=== PATIENT | male | born 1985 | race Caucasian/White ===

== ENCOUNTER → 2016-10-13 | Outpatient (CLI) | payer MEDICAID ==
[2016-10-13 12:38] LABS: MEAN CORPUSCULAR HEMOGLOBIN 32.2 pg (27.0-33.0); MEAN CORPUSCULAR HGB CONC 34.1 g/dl (32.0-36.5); MEAN CORPUSCULAR VOLUME 94.5 fl (80.0-96.0); RED CELL DISTRIBUTION WIDTH 12.9 % (11.5-14.5); WHITE BLOOD COUNT 9.4 K/mm3 (4.0-10.0)
[2016-10-13 13:04] LABS: ALBUMIN/GLOBULIN RATIO 1.33 (1.00-1.93); ALKALINE PHOSPHATASE 81 U/L (45-117); ALT/SGPT 33 U/L (12-78); ANION GAP 11 MEQ/L (8-16); AST/SGOT 19 U/L (15-37); BILIRUBIN,TOTAL 0.3 MG/DL (0.2-1.0); BLOOD UREA NITROGEN 16 MG/DL (7-18); CALCIUM LEVEL 8.5 MG/DL (8.5-10.1); CARBON DIOXIDE LEVEL 25 MEQ/L (21-32); CHLORIDE LEVEL 97 MEQ/L (98-107); CREATININE FOR GFR 1.23 MG/DL (0.70-1.30); GLOMERULAR FILTRATION RATE > 60.0 (>60); GLUCOSE, FASTING 88 MG/DL (70-105); POTASSIUM SERUM 3.6 MEQ/L (3.5-5.1); SODIUM LEVEL 133 MEQ/L (136-145)
[2016-10-13 13:13] LABS: HEPATITIS B SURFACE ANTIBODY POSITIVE (POSITIVE)
[2016-10-17 00:06] LABS: HEPATITIS C QUANTITATION HCV Not Detected IU/mL (.)
[2016-10-17 08:06] LABS: ALT 29 IU/L (0-55); GGT 21 IU/L (0-65); HAPTOGLOBIN 141 mg/dL (34-200); NECROINFLAMM GRADE A0-No activity (.); TOTAL BILIRUBIN 0.2 mg/dL (0.0-1.2)
== END ==
LOC: M LAB 12:01
PROVIDERS: ATTEND Internal Medicine Cardiovascular Disease
DX: Z13.89 Encounter for screening for other disorder (principal)

== ENCOUNTER 2017-07-27 03:39 | Inpatient (IN) | payer MEDICAID, OTHER, SELFPAY ==
[~2017-07-27] VITALS: Ht 180.3 cm; Wt 81.8 kg
[2017-07-27 05:20] LABS: MEAN CORPUSCULAR HEMOGLOBIN 31.3 pg (27.0-33.0); MEAN CORPUSCULAR HGB CONC 34.9 g/dl (32.0-36.5); MEAN CORPUSCULAR VOLUME 89.9 fl (80.0-96.0); RED CELL DISTRIBUTION WIDTH 12.9 % (11.5-14.5); WHITE BLOOD COUNT 19.2 10^3/uL (4.0-10.0)
[2017-07-27 05:44] LABS: METHADONE URINE NEGATIVE (NEGATIVE)
[2017-07-27 06:34] LABS: ALKALINE PHOSPHATASE 120 U/L (45-117); ALT/SGPT 39 U/L (12-78); ANION GAP 13 MEQ/L (8-16); AST/SGOT 59 U/L (15-37); BILIRUBIN,DIRECT 0.3 MG/DL (0.0-0.2); BILIRUBIN,TOTAL 1.1 MG/DL (0.2-1.0); BLOOD UREA NITROGEN 18 MG/DL (7-18); CALCIUM LEVEL 8.9 MG/DL (8.5-10.1); CARBON DIOXIDE LEVEL 22 MEQ/L (21-32); CHLORIDE LEVEL 101 MEQ/L (98-107); CREATININE FOR GFR 1.32 MG/DL (0.70-1.30); GLOMERULAR FILTRATION RATE > 60.0 (>60); GLUCOSE, FASTING 80 MG/DL (70-105); POTASSIUM SERUM 3.7 MEQ/L (3.5-5.1); SODIUM LEVEL 136 MEQ/L (136-145); TOTAL PROTEIN 7.8 GM/DL (6.4-8.2)
[2017-07-27] MEDS ORDERED: HALOPERIDOL 5 MG TAB PO STA (06:41)
[2017-07-27 07:05] LABS: ALBUMIN 4.4 GM/DL (3.2-5.2); ALBUMIN/GLOBULIN RATIO 1.29 (1.00-1.93)
[2017-07-27] MEDS: NICOTINE 21MG/24HR 1 EA TRANSDERMAL TD SCH (09:00)
--- NOTE | 2017-07-27 09:41 | ECGEPIP ---
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
[2017-07-27] MEDS ORDERED: MOM 30ML SUSPENSION UDC PO PRN (14:45)
[2017-07-27] MEDS ORDERED: MAALOX 30 ML SUSP *UDC PO PRN (14:45)
[2017-07-27] MEDS ORDERED: QUEtiapine FUMARATE 100 MG TAB PO PRN (14:45)
[2017-07-27 18:00] VITALS: BP 140/82
[2017-07-27] MEDS: ACETAMINOPHEN TAB 650MG DOSE (2X325MG) PO PRN (20:56)
[2017-07-27] MEDS: OLANZapine ORAL DISINTEGRATING TAB 5MG PO PRN (20:56)
[2017-07-28 06:47] VITALS: BP 117/59
--- NOTE | 2017-07-28 09:29 | HPEPDOC ---
[facility] Medical History & Physical Date of Admission Jul 27, 2017 History and Physical PCP: None ATTENDING: Dr. Raymon Butler HPI: 32yoM admitted to [facility] for bipolar disorder unspecified, being medically examined today. No acute medical complaints today. Denies any fevers, chills, weakness, fatigue, ZHANG, CP, SOB, cough, palpitations, abdominal pain, N/V/D or changes in bowel or bladder habits. PMHx: Bipolar disorder Anxiety Depression History of SI/suicide attempt. Overdose. Substance use. PSHX: Denies SOCHX: Resides in: 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 IV Drug Use: Methamphetamine, heroin. Tattoos done unprofessionally: Denies FAMHX: Mother: Unknown Father: Unknown Siblings: Alive, well Children: Alive, well Unexpected deaths due to medical reasons: None. ROS: As noted in HPI, otherwise 11pt ROS of systems reviewed and remarkable only for erythematous rash bilateral toes. Patient states he wears steel toed boots all day and does a lot of walking on uneven surfaces. His feet become irritated. PE: GEN: 32 yo M, appears stated age. Well-nourished, well developed. No acute distress. Alert and oriented x 3. Avoids eye contact, reluctant to answer questions. HEENT: Normocephalic, atraumatic. Pupils are equal, round, and reactive to light. Extraocular movements are intact. No nystagmus appreciated. Sclera are nonicteric. Conjunctiva without injection. Nose midline. Nasal turbinates without bogginess. EACs both patent BL. TMs both visualized and mckeon with good cone of light, no bulging or erythema. No facial asymmetry. Moist mucous membranes. Dentition fair. Pharynx pink and moist, no cobblestoning. Neck supple , trachea midline. No lymphadenopathy or thyromegaly appreciated. CHEST: Regular rate and rhythm, +S1, +S2 LUNGS: Clear to auscultation bilaterally. No wheezes, rales, or rhonchi. Breathing appears symmetric and easy. Patient is speaking in full sentences. No accessory muscle use. ABD: Round, soft, non-tender, non-distended. +Bowel sounds throughout. No rebound or guarding. No costovertebral angle tenderness. EXT: Pulses 2+ bilaterally dorsalis pedis and radial. No lower extremity edema appreciated. SKIN: Sexton, dry, warm. erythematous rash bilateral feet, between toes. Injection sites noted bilateral arms and hands. No erythema, drainage. NEURO: Alert and oriented x 3. Cranial nerves III-XII are intact. No focal deficits appreciated. EK07/27/17 SINUS TACHYCARDIA POSSIBLE LEFT ATRIAL ENLARGEMENT POOR R WAVE PROGRESSION BASELINE ARTIFACT AFFECTS INTERPRETATION RATE CHANGE COMPARED TO 09/28/15 A&P: 32yoM admitted to [facility] for bipolar disorder unspecified 1. Psych. Plan per Psychiatry. EKG on file. 2. Nicotine dependence. Patch available. 3. Borderline EKG. No cardiac signs or symptoms appreciated on exam, follow with PCP. 4. Follow up. No Primary Care Provider. Will attempt to establish PCP on discharge. 5. Substance abuse. Per psychiatry. 6. Leukocytosis. Patient is afebrile. Asymptomatic. Possible stress response. Recheck CBC. 7. Elevated CK. Recheck CK today. Oral intake has improved. 8. Elevated serum creatinine. Recheck CMP today. Oral intake has improved. 9. History of IVDU. Patient agrees to HIV and hepatitis screening. 10. Abnormal LFT. Recheck CMP and requests hepatitis profile. 11. Staff member Jw present throughout exam. Vital Signs Vital Signs Date Time Temp Pulse Resp B/P (MAP) Pulse Ox O2 Delivery O2 Flow Rate FiO2 07/28/17 06:47 98.2 71 20 117/59 (78) 07/27/17 18:00 96 Room Air Home Medications No Active Prescriptions or Reported Meds Allergies Coded Allergies: Aspirin (Verified Allergy, Mild, IRREGULAR HEARTBEAT, 07/27/17) Michelle Michelle Jul 28, 2017 09:29
[2017-07-28] MEDS: NICOTINE 21MG/24HR 1 EA TRANSDERMAL TD SCH (09:31)
[2017-07-28 10:02] LABS: BASO % 0.4 % (0.0-1.0); EOS # 0.1 10^3/uL (0.0-0.50); EOS % 1.6 % (0.0-3.0); IMMATURE GRANULOCYTE % 0.2 % (0-0); LYMPH # 1.9 10^3/uL (1.5-4.5); LYMPH % 34.3 % (24.0-44.0); MEAN CORPUSCULAR HEMOGLOBIN 31.5 pg (27.0-33.0); MEAN CORPUSCULAR HGB CONC 34.6 g/dl (32.0-36.5); MEAN CORPUSCULAR VOLUME 91.1 fl (80.0-96.0); MONO # 0.4 10^3/uL (0.0-0.8); NEUTROPHILS % 55.5 % (36.0-66.0); PLATELET COUNT, AUTOMATED 234 10^3/uL (150-450); RED CELL DISTRIBUTION WIDTH 12.9 % (11.5-14.5); WHITE BLOOD COUNT 5.5 10^3/uL (4.0-10.0)
[2017-07-28 10:33] LABS: ALBUMIN 3.6 GM/DL (3.2-5.2); ALBUMIN/GLOBULIN RATIO 1.03 (1.00-1.93); ALKALINE PHOSPHATASE 109 U/L (45-117); ALT/SGPT 33 U/L (12-78); ANION GAP 4 MEQ/L (8-16); AST/SGOT 28 U/L (15-37); BILIRUBIN,TOTAL 0.7 MG/DL (0.2-1.0); BLOOD UREA NITROGEN 19 MG/DL (7-18); CALCIUM LEVEL 9.1 MG/DL (8.5-10.1); CARBON DIOXIDE LEVEL 29 MEQ/L (21-32); CHLORIDE LEVEL 108 MEQ/L (98-107); CREATININE FOR GFR 1.05 MG/DL (0.70-1.30); GLOMERULAR FILTRATION RATE > 60.0 (>60); GLUCOSE, FASTING 102 MG/DL (70-105); SODIUM LEVEL 141 MEQ/L (136-145); TOTAL PROTEIN 7.1 GM/DL (6.4-8.2)
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
[2017-07-28] MEDS: CitaloPRAM (CeleXA) 10 MG TABLET PO SCH (16:26)
[2017-07-28 18:30] VITALS: BP 111/58
[2017-07-28] MEDS: OLANZapine ORAL DISINTEGRATING TAB 5MG PO PRN (20:21)
[2017-07-28] MEDS: ACETAMINOPHEN TAB 650MG DOSE (2X325MG) PO PRN (20:21)
[2017-07-29 06:23] VITALS: BP 128/62
[2017-07-29 08:10] LABS: MEAN CORPUSCULAR HEMOGLOBIN 31.2 pg (27.0-33.0); MEAN CORPUSCULAR HGB CONC 33.9 g/dl (32.0-36.5); MEAN CORPUSCULAR VOLUME 91.9 fl (80.0-96.0); RED CELL DISTRIBUTION WIDTH 12.7 % (11.5-14.5); WHITE BLOOD COUNT 6.1 10^3/uL (4.0-10.0)
[2017-07-29] MEDS: NICOTINE 21MG/24HR 1 EA TRANSDERMAL TD SCH (08:25)
[2017-07-29] MEDS: CitaloPRAM (CeleXA) 10 MG TABLET PO SCH (08:25)
[2017-07-29 08:37] LABS: ALBUMIN 3.5 GM/DL (3.2-5.2); ALBUMIN/GLOBULIN RATIO 1.06 (1.00-1.93); ALKALINE PHOSPHATASE 105 U/L (45-117); ALT/SGPT 27 U/L (12-78); ANION GAP 7 MEQ/L (8-16); AST/SGOT 19 U/L (15-37); BILIRUBIN,TOTAL 0.4 MG/DL (0.2-1.0); BLOOD UREA NITROGEN 17 MG/DL (7-18); CARBON DIOXIDE LEVEL 26 MEQ/L (21-32); CHLORIDE LEVEL 108 MEQ/L (98-107); CREATININE FOR GFR 0.94 MG/DL (0.70-1.30); GLOMERULAR FILTRATION RATE > 60.0 (>60); GLUCOSE, FASTING 102 MG/DL (70-105); POTASSIUM SERUM 4.2 MEQ/L (3.5-5.1); SODIUM LEVEL 141 MEQ/L (136-145); TOTAL PROTEIN 6.8 GM/DL (6.4-8.2)
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
[2017-07-29] MEDS: OLANZapine ORAL DISINTEGRATING TAB 5MG PO PRN (13:00)
[2017-07-29 18:24] VITALS: BP 121/62
[2017-07-30 06:00] VITALS: BP 118/67
[2017-07-30] MEDS: NICOTINE 21MG/24HR 1 EA TRANSDERMAL TD SCH (08:30)
[2017-07-30] MEDS: CitaloPRAM (CeleXA) 10 MG TABLET PO SCH (08:31)
--- NOTE | 2017-07-30 11:04 | MHIPNPDOC ---
[facility] Progress Note Progress Note DATE OF SERVICE: 07/30/17 HISTORY: Patient insists in going to rehabilitation, he is motivated to do it. Yesterday this promotion writer spoke with the senior media planner about the possibility of him going to rehabilitation and she said that apparently there are some only 2 places that will take him at this time. He was informed of this situation and was told it might take a long time for this places to accept him or he might be accepted right away. Patient has a long-standing history of substance abuse and he has been as an inpatient at rehabilitation [facility]. Patient is aware of his problem and has not given up the relationship with his ex- girlfriend. He will try hard to get off the drugs and to go back to her if he can prove her that he is able to stay clean. Today, 07/30/17 he said that if he's not accepted in Rehab right away, he will go [facility] and live with his girlfriend or his parents house. he says he spoke with his GF who came to visit him last night and he thinks she would be supportive for the most part of this process. discussed with him addressing his past history of trauma and dealing with that situation, if he really wants to succeed with the substance abuse problem, he needs to heal the trauma and depression with therapy and psychopharmacology. Addressed this issue because he has never complied with treatment after being in rehab. VITAL SIGNS: See below. NEW TEST RESULTS: See below CURRENT MEDICATIONS: See below. MENTAL STATUS EXAMINATION: Patient is a 32 -year old male, who is alert, dressed in hospital clothes, cooperative with poor eye contact, good hygiene and grooming. Speech: Normal in tone, rate and volume Language skills are Fair. Thought processes including: Coherent Thought content: Focused on his rehab. Abstract reasoning, and computation: Fair Description of associations: good Description of abnormal or psychotic thoughts: Denied a/V hallucinations, denied SI/HI. He states he feels less paranoid than he did yesterday. Judgment: Poor Insight: Limited Orientation: oriented x 3 Recent and remote memory: Good Attention span and concentration: Fair Language: Fair Fund of knowledge: Not assessed at this time Mood: Sad, dressed Affect: congruent to mood, constricted DIAGNOSES: 1. Unspecified psychotic disorder, r/o Substance induced psychosis 2. Bipolar disorder by history 3. R/O PTSD ASSESSMENT: Patient is responding well to medications, he hasn't had any visual or auditory hallucinations although he continues to be depressed. This depression can be a consequence of the problem abuse and the withdrawals, but I believe the patient has been depressed for mostly all his life. I think he has PTSD and this has been untreated for many years because he doesn't like to talk about these past traumatic events. MANAGEMENT PLAN: We'll continue with the same treatment plan TIME SPENT: 20 minutes. Vital Signs Vital Signs Date Time Temp Pulse Resp B/P (MAP) Pulse Ox O2 Delivery O2 Flow Rate FiO2 07/30/17 06:00 98.1 68 18 118/67 (84) 07/29/17 11:00 Room Air 07/27/17 18:00 96 Current Medications Current Medications Acetaminophen (Tylenol Tab) 650 mg Q6HP PRN PO HEADACHE or DISCOMFORT Last administered on 07/28/17 20:21; Start 07/27/17 at 14:45; Stop 08/26/17 at 14 :44 Al Hydrox/Mg Hydrox/Simethicone (Mylanta) 30 ml Q4HP PRN PO HEARTBURN/ INDIGESTION; Start 07/27/17 at 14:45; Stop 08/26/17 at 14:44 Aripiprazole (AbiLIFY) 2.5 mg BID PO Last administered on 07/29/17 08:25; Start 07/28/17 at 21:00; Stop 07/29/17 at 10:53; Status DC Aripiprazole (AbiLIFY) 2.5 mg QAM PO Last administered on 07/30/17 08:31; Start 07/30/17 at 09:00; Stop 08/27/17 at 20:59 Aripiprazole (AbiLIFY) 5 mg QHS PO ; Start 07/29/17 at 21:00; Stop 08/28/17 at 20:59 Citalopram Hydrobromide (CeleXA) 10 mg DAILY PO Last administered on 08:31; Start 07/28/17 at 09:00; Stop 08/27/17 at 08:59 Haloperidol (Haldol) 5 mg STAT STAT PO Last administered on 07/27/17 06:51; Start 07/27/17 at 06:41; Stop 07/27/17 at 06:42; Status DC Home Med (Med Rec Complete!) ASDIRECTED XX ; Start 07/27/17 at 05:30; Stop at 05:33; Status DC Magnesium Hydroxide (Milk Of Magnesia) 30 ml DAILYPRN PRN PO CONSTIPATION; Start 07/27/17 at 14:45; Stop 08/26/17 at 14:44 Nicotine (Nicoderm Cq 21mg) 1 patch DAILY TD Last administered on 07/30/17 08 :30; Start 07/27/17 at 09:00; Stop 08/26/17 at 08:59 Olanzapine (ZyPREXA ZYDIS) 5 mg Q4HP PRN PO AGITATION Last administered on 07/29/17 13:00; Start 07/27/17 at 14:45; Stop 08/26/17 at 14:44 Quetiapine Fumarate (SEROquel) 100 mg QHSP PRN PO INSOMNIA Last administered on 07/27/17 20:56; Start 07/27/17 at 14:45; Stop 07/28/17 at 15:43; Status DC Allergies Coded Allergies: Aspirin (Verified Allergy, Mild, IRREGULAR HEARTBEAT, 07/27/17) MARYCRUZ ANDERSON MD Jul 30, 2017 11:04
[2017-07-30 18:00] VITALS: BP 129/80
[2017-07-31 06:58] VITALS: BP 113/66
[2017-07-31] MEDS: NICOTINE 21MG/24HR 1 EA TRANSDERMAL TD SCH (08:35)
[2017-07-31] MEDS: CitaloPRAM (CeleXA) 10 MG TABLET PO SCH (08:35)
[2017-07-31] MEDS: OLANZapine ORAL DISINTEGRATING TAB 5MG PO PRN ×2 (13:30→21:33)
[2017-07-31 18:00] VITALS: BP 114/58
--- NOTE | 2017-07-31 19:43 | MHIPNPDOC ---
[facility] Progress Note Progress Note DATE OF SERVICE: 07/31/17 HISTORY: Patient insists in going to rehabilitation, he is motivated to do it. Yesterday this documentation writer spoke with the process planner about the possibility of him going to rehabilitation and she said that apparently there are some only 2 places that will take him at this time. He was informed of this situation and was told it might take a long time for this places to accept him or he might be accepted right away. Patient has a long-standing history of substance abuse and he has been as an inpatient at [facility]. Patient is aware of his problem and has not given up the relationship with his ex- girlfriend. He will try hard to get off the drugs and to go back to her if he can prove her that he is able to stay clean. Today, 07/31/17 patient denied suicidal ideation and said he would like to leave the hospital to go into Rehab directly because he doesn't feel safe if he goes to his parents or his ex girlfriend's house. VITAL SIGNS: See below. NEW TEST RESULTS: See below CURRENT MEDICATIONS: See below. MENTAL STATUS EXAMINATION: Patient is a 32 -year old male, who is alert, dressed in personal clothes, cooperative with poor eye contact, good hygiene and grooming. Speech: Normal in tone and rate, low volume Language skills are Fair. Thought processes including: Goal directed Thought content: Focused on his rehab. Abstract reasoning, and computation: Fair Description of associations: good Description of abnormal or psychotic thoughts: Denied a/V hallucinations, denied SI/HI but he describes anxious thoughts about his discharge because he doesn't feel safe going back to his family or GF's home, he feels he would use drugs again or would try to hurt himself. Judgment: Poor Insight: Poor Orientation: oriented x 3 Recent and remote memory: Good Attention span and concentration: Fair Language: Fair Fund of knowledge: Not assessed at this time Mood: Sad, dressed Affect: congruent to mood, constricted DIAGNOSES: 1. Unspecified psychotic disorder, r/o Substance induced psychosis 2. Bipolar disorder by history 3. R/O PTSD ASSESSMENT: Patient is cooperative with a pleasant attitude. He continues to be depressed, even when he seems to be improving a little bit. Patient needs to address his history of trauma and heal that if he wants to stop using drugs. he needs to go to rehab but he will need to go to therapy to address his problems. MANAGEMENT PLAN: We'll continue with the same treatment plan TIME SPENT: 20 minutes. Vital Signs Vital Signs Date Time Temp Pulse Resp B/P (MAP) Pulse Ox O2 Delivery O2 Flow Rate FiO2 07/31/17 18:00 98.6 64 16 114/58 (76) 07/29/17 11:00 Room Air 07/27/17 18:00 96 Current Medications Current Medications Acetaminophen (Tylenol Tab) 650 mg Q6HP PRN PO HEADACHE or DISCOMFORT Last administered on 07/28/17 20:21; Start 07/27/17 at 14:45; Stop 08/26/17 at 14 :44 Al Hydrox/Mg Hydrox/Simethicone (Mylanta) 30 ml Q4HP PRN PO HEARTBURN/ INDIGESTION; Start 07/27/17 at 14:45; Stop 08/26/17 at 14:44 Aripiprazole (AbiLIFY) 2.5 mg BID PO Last administered on 07/29/17 08:25; Start 07/28/17 at 21:00; Stop 07/29/17 at 10:53; Status DC Aripiprazole (AbiLIFY) 2.5 mg QAM PO Last administered on 07/31/17 08:35; Start 07/30/17 at 09:00; Stop 08/27/17 at 20:59 Aripiprazole (AbiLIFY) 5 mg QHS PO Last administered on 07/30/17 20:45; Start 07/29/17 at 21:00; Stop 08/28/17 at 20:59 Citalopram Hydrobromide (CeleXA) 10 mg DAILY PO Last administered on 08:35; Start 07/28/17 at 09:00; Stop 08/27/17 at 08:59 Haloperidol (Haldol) 5 mg STAT STAT PO Last administered on 07/27/17 06:51; Start 07/27/17 at 06:41; Stop 07/27/17 at 06:42; Status DC Home Med (Med Rec Complete!) ASDIRECTED XX ; Start 07/27/17 at 05:30; Stop at 05:33; Status DC Magnesium Hydroxide (Milk Of Magnesia) 30 ml DAILYPRN PRN PO CONSTIPATION; Start 07/27/17 at 14:45; Stop 08/26/17 at 14:44 Nicotine (Nicoderm Cq 21mg) 1 patch DAILY TD Last administered on 07/31/17 08 :35; Start 07/27/17 at 09:00; Stop 08/26/17 at 08:59 Olanzapine (ZyPREXA ZYDIS) 5 mg Q4HP PRN PO AGITATION Last administered on 07/31/17 13:30; Start 07/27/17 at 14:45; Stop 08/26/17 at 14:44 Quetiapine Fumarate (SEROquel) 100 mg QHSP PRN PO INSOMNIA Last administered on 07/27/17 20:56; Start 07/27/17 at 14:45; Stop 07/28/17 at 15:43; Status DC Allergies Coded Allergies: Aspirin (Verified Allergy, Mild, IRREGULAR HEARTBEAT, 07/27/17) MARYCRUZ ANDERSON MD Jul 31, 2017 19:43
[2017-07-31] MEDS: ACETAMINOPHEN TAB 650MG DOSE (2X325MG) PO PRN (21:33)
[2017-08-01 07:00] VITALS: BP 106/57
[2017-08-01] MEDS: NICOTINE 21MG/24HR 1 EA TRANSDERMAL TD SCH (08:38)
[2017-08-01] MEDS: CitaloPRAM (CeleXA) 10 MG TABLET PO SCH (08:38)
[2017-08-01 18:11] VITALS: BP 128/68
[2017-08-01] MEDS: OLANZapine ORAL DISINTEGRATING TAB 5MG PO PRN (20:25)
[2017-08-01] MEDS: ACETAMINOPHEN TAB 650MG DOSE (2X325MG) PO PRN (20:25)
[2017-08-02 06:31] VITALS: BP 108/56
[2017-08-02] MEDS: CitaloPRAM (CeleXA) 10 MG TABLET PO SCH (08:42)
[2017-08-02] MEDS: NICOTINE 21MG/24HR 1 EA TRANSDERMAL TD SCH (08:42)
[2017-08-02 18:00] VITALS: BP 138/78
[2017-08-03 06:33] VITALS: BP 131/63
[2017-08-03] MEDS: CitaloPRAM (CeleXA) 10 MG TABLET PO SCH (08:29)
[2017-08-03] MEDS: NICOTINE 21MG/24HR 1 EA TRANSDERMAL TD SCH (08:29)
[2017-08-03] MEDS: ACETAMINOPHEN TAB 650MG DOSE (2X325MG) PO PRN (10:08)
--- NOTE | 2017-08-03 13:52 | MHIPNPDOC ---
[facility] Progress Note Progress Note DATE OF SERVICE: 08/03/17 HISTORY: Patient insists in going to rehabilitation, he is motivated to do it. Yesterday this typewriter tester spoke with the assortment planner about the possibility of him going to rehabilitation and she said that apparently there are some only 2 places that will take him at this time. He was informed of this situation and was told it might take a long time for this places to accept him or he might be accepted right away. Patient has a long-standing history of substance abuse and he has been as an inpatient at [facility]. Patient is aware of his problem and has not given up the relationship with his ex- girlfriend. He will try hard to get off the drugs and to go back to her if he can prove her that he is able to stay clean. Today, 08/03/17 patient said he would prefer to go directly to the Rehabilitation Program because he was not that sure he was going to use drugs again or not but he denied feeling suicidal or homicidal. Later on, patient says it was his GF who wanted him to go directly to the Rehab Program, not him because he knows he can take care of himself. He said he didn't need to have a meeting with GF, parents or friends to hav a safe discharge because he could take care of himself and seemed to be in a hurry to leave [facility]. This typewriter tester addressed that issue, asked him if he had drug cravings and he said no. TW explained that before a patient leaves, we must have a discharge meeting with patient's support members to be sure they are safe to go home. patient seemed to be upset about this. VITAL SIGNS: See below. NEW TEST RESULTS: See below CURRENT MEDICATIONS: See below. MENTAL STATUS EXAMINATION: Patient is a 32 -year old male, who is alert, cooperative, dressed in personal clothes, anxious, with poor eye contact, fair hygiene and grooming. Speech: Higher volume than usual, but within the normal range. Normal rate and tone. Language skills are good Thought processes including: coherent Thought content: Focused on being discharged without having a discharge meeting. Abstract reasoning, and computation: Fair Description of associations: good Description of abnormal or psychotic thoughts: Denies A/V hallucinations, denies thought delusions, denies SI and HI. Judgment: Poor Insight: Poor Orientation: oriented x 3 Recent and remote memory: Good Attention span and concentration: Good Language: Fair Fund of knowledge: Not assessed at this time Mood: Anxious Affect: congruent to mood,constricted, anxious DIAGNOSES: 1. Unspecified psychotic disorder, r/o Substance induced psychosis 2. Bipolar disorder by history 3. R/O PTSD ASSESSMENT: Patient is going back and forth between wanting to be discharged and not wanting to be discharged. He expressed it was his GF the person who wanted him to go directly to Rehab, he says he doesn't have a problem leaving today but he seems to be having cravings and seems to be in a napier to leave the [facility]. Patient has been accepted already at a Rehab program where he must check in this following Thursday. He is not suicidal, not homicidal and not psychotic. He could be discharged tomorrow. MANAGEMENT PLAN: We'll continue with the same treatment plan, possible discharge tomorrow. TIME SPENT: 30 minutes. Vital Signs Vital Signs Date Time Temp Pulse Resp B/P (MAP) Pulse Ox O2 Delivery O2 Flow Rate FiO2 08/03/17 06:33 97.8 80 16 131/63 (85) 08/02/17 06:31 Room Air Current Medications Current Medications Acetaminophen (Tylenol Tab) 650 mg Q6HP PRN PO HEADACHE or DISCOMFORT Last administered on 08/03/17 10:08; Start 07/27/17 at 14:45; Stop 08/26/17 at 14 :44 Al Hydrox/Mg Hydrox/Simethicone (Mylanta) 30 ml Q4HP PRN PO HEARTBURN/ INDIGESTION; Start 07/27/17 at 14:45; Stop 08/26/17 at 14:44 Aripiprazole (AbiLIFY) 2.5 mg BID PO Last administered on 07/29/17 08:25; Start 07/28/17 at 21:00; Stop 07/29/17 at 10:53; Status DC Aripiprazole (AbiLIFY) 2.5 mg QAM PO Last administered on 08/03/17 08:29; Start 07/30/17 at 09:00; Stop 08/03/17 at 10:26; Status DC Aripiprazole (AbiLIFY) 5 mg BID PO ; Start 08/03/17 at 21:00; Stop 09/02/17 at 20:59 Aripiprazole (AbiLIFY) 5 mg QHS PO Last administered on 08/02/17 21:36; Start 07/29/17 at 21:00; Stop 08/03/17 at 10:33; Status DC Aripiprazole (AbiLIFY) 5 mg QHS PO ; Start 08/03/17 at 21:00; Stop 08/27/17 at 20:59; Status UNV Citalopram Hydrobromide (CeleXA) 10 mg DAILY PO Last administered on 08:29; Start 07/28/17 at 09:00; Stop 08/03/17 at 10:41; Status DC Citalopram Hydrobromide (CeleXA) 20 mg DAILY PO ; Start 08/04/17 at 09:00; Stop 09/03/17 at 08:59 Haloperidol (Haldol) 5 mg STAT STAT PO Last administered on 07/27/17 06:51; Start 07/27/17 at 06:41; Stop 07/27/17 at 06:42; Status DC Home Med (Med Rec Complete!) ASDIRECTED XX ; Start 07/27/17 at 05:30; Stop at 05:33; Status DC Magnesium Hydroxide (Milk Of Magnesia) 30 ml DAILYPRN PRN PO CONSTIPATION; Start 07/27/17 at 14:45; Stop 08/26/17 at 14:44 Nicotine (Nicoderm Cq 21mg) 1 patch DAILY TD Last administered on 08/03/17 08 :29; Start 07/27/17 at 09:00; Stop 08/26/17 at 08:59 Olanzapine (ZyPREXA ZYDIS) 5 mg Q4HP PRN PO AGITATION Last administered on 08/01/17 20:25; Start 07/27/17 at 14:45; Stop 08/26/17 at 14:44 Quetiapine Fumarate (SEROquel) 100 mg QHSP PRN PO INSOMNIA Last administered on 07/27/17 20:56; Start 07/27/17 at 14:45; Stop 07/28/17 at 15:43; Status DC Allergies Coded Allergies: Aspirin (Verified Allergy, Mild, IRREGULAR HEARTBEAT, 07/27/17) MARYCRUZ ANDERSON MD Aug 03, 2017 13:52
[2017-08-03 18:00] VITALS: BP 139/71
[2017-08-04 06:46] VITALS: BP 118/73
[2017-08-04] MEDS: NICOTINE 21MG/24HR 1 EA TRANSDERMAL TD SCH (08:33)
[2017-08-04] MEDS ORDERED: CitaloPRAM (CeleXA) 20 MG TAB PO SCH (09:00)
[2017-08-04] MEDS ORDERED: CELE20TA PO (11:59)
[2017-08-04] MEDS ORDERED: ARIP5TA PO (11:59)
[2017-08-04] MEDS ORDERED: OLAN5ZYD PO (12:00)
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
== END 2017-08-04 13:10 | disposition home or self-care (01) | DRG 776 ==
LOC: M ED 03:39 → M ED INP 14:33 → M PSY 17:30
PROVIDERS: ADMIT Psychiatry & Neurology Psychiatry; ATTEND Psychiatry & Neurology Psychiatry
DX: F19.94 Other psychoactive substance use, unspecified with psychoactive substance-induced mood disorder (principal); F31.9 Bipolar disorder, unspecified; F43.10 Post-traumatic stress disorder, unspecified; Z88.6 Allergy status to analgesic agent; F17.200 Nicotine dependence, unspecified, uncomplicated; D72.829 Elevated white blood cell count, unspecified

== ENCOUNTER 2019-02-20 16:24 | Emergency (ER) | payer OTHER, SELFPAY ==
[~2019-02-20] VITALS: Ht 180.3 cm; Wt 78.2 kg
[~2019-02-20 16:24] MED LIST: ARIP1TAB6 PO; CELE20TA PO; OLAN5ZYD PO
[2019-02-20] MEDS ORDERED: IBUP-1114 PO (16:28)
[2019-02-20] MEDS ORDERED: KETOROLAC 60 MG/2 ML VIAL (J1885) IM ONE (17:00)
[2019-02-20] MEDS ORDERED: LIDOCAINE 5% (LIDODERM) PATCH TD ONE (18:30)
[2019-02-20] MEDS ORDERED: LIDO5DIS41 TD (18:30)
[2019-02-20 18:42] VITALS: BP 126/62
--- NOTE | 2019-02-20 19:02 | REP ---
Left rib series: Five views including PA chest. History: Left anterior and lateral rib pain. Previous history of fracture. Findings: PA chest radiograph shows no evidence of pneumothorax or hydrothorax. Mediastinum is not widened. Heart size is normal. Lung handy are clear. Multiple views of the left rib cage show no visible rib fracture or bony destructive lesion. Impression: No acute rib fracture seen. Electronically Signed by Jovan Camacho MD 02/20/2019 06:54 P
== END 2019-02-20 18:48 | disposition home or self-care (01) ==
LOC: M ED 16:24
DX: R07.89 Other chest pain (principal); F41.9 Anxiety disorder, unspecified; F32.9 Major depressive disorder, single episode, unspecified; F31.9 Bipolar disorder, unspecified; F90.9 Attention-deficit hyperactivity disorder, unspecified type; R56.9 Unspecified convulsions; G47.30 Sleep apnea, unspecified; Z72.0 Tobacco use; Z88.8 Allergy status to other drugs, medicaments and biological substances
CPT/HCPCS: 71101; 96372; 99283; J1885

== ENCOUNTER → 2021-10-24 | Outpatient (CLI) | payer OTHER ==
[~2021-10-24] MED LIST changes: +IBUP-1114 PO; +LATU40TA PO; +LIDO5DIS41 TD; +LITH300C PO; +LITH600C PO; +[UNRECOGNIZED DRUG - CODE] SC
== END ==
LOC: M LABSMTC 11:55
PROVIDERS: ATTEND Anesthesiology
DX: Z01.818 Encounter for other preprocedural examination (principal); Z11.52 Encounter for screening for COVID-19

== ENCOUNTER 2021-10-29 14:33 | Day surgery (SDC) | payer OTHER ==
[~2021-10-29] VITALS: Ht 180.3 cm; Wt 95.7 kg
[~2021-10-29 14:33] MED LIST changes: +AMPICILLIN SOD/SULBACTAM SOD 3 GM in D5W MINI-BAG PLUS 100 ML IV ONE; +LIDOCAINE 1% MDV 20ML VIAL SQ PRN; +LR 1,000 ML IV ONE; +dexameTHASONE 4 MG/ML 1ML VIAL (J1100 PER 1MG) IV ONE
[2021-10-29] MEDS ORDERED: LIDOCAINE 2% W/ EPINEPHRINE 1.7 ML DENTAL INJ As Ordered ONE ×2 (16:05→16:17)
[2021-10-29] MEDS ORDERED: propofoL 200 MG/20 ML VIAL As Ordered ONE (16:06)
[2021-10-29] MEDS ORDERED: fentaNYL 100 MCG/2 ML INJECTION (J3010) As Ordered ONE (16:06)
[2021-10-29] MEDS ORDERED: MIDAZOLAM INJ 2MG/2ML VIAL (J2250 PER 1MG) As Ordered ONE (16:06)
[2021-10-29] MEDS ORDERED: ONDANSETRON 4MG/2ML VIAL As Ordered ONE (16:06)
[2021-10-29] MEDS ORDERED: LIDOCAINE 2% 100MG/5ML SDV (FOR ANES.) As Ordered ONE (16:06)
[2021-10-29] MEDS ORDERED: LR 1,000 ML IV SCH (17:20)
[2021-10-29] MEDS ORDERED: ONDANSETRON 4MG/2ML VIAL IV PRN (17:20)
[2021-10-29] MEDS ORDERED: fentaNYL 100 MCG/2 ML INJECTION (J3010) IV PRN (17:20)
[2021-10-29] MEDS: oxyCODONE 5MG TAB PO PRN ×2 (17:24→18:15)
[2021-10-29] MEDS ORDERED: ACETAMINOPHEN 1000MG 100ML IV BTL (OFIRMEV) (J0131 PER 10MG) As Ordered ONE (17:28)
[2021-10-29] MEDS ORDERED: ALBUTEROL 6.7GM INHALER **FOR ANES. CART/OMNICELL ONLY As Ordered ONE (17:28)
[2021-10-29] MEDS ORDERED: SUGAMMADEX SODIUM 500 MG/5 ML VIAL (BRIDION) As Ordered ONE (17:28)
[2021-10-29 18:25] VITALS: BP 128/79
== END 2021-10-29 18:39 | disposition home or self-care (01) ==
LOC: M SDC 14:33
PROVIDERS: ATTEND Dentist
DX: K02.9 Dental caries, unspecified (principal); F15.21 Other stimulant dependence, in remission; Z88.8 Allergy status to other drugs, medicaments and biological substances
CPT/HCPCS: 88300; D7140; D7210; D9223; J0131; J1100; J2250; J2405; J3010

== ENCOUNTER 2021-12-18 17:12 | Emergency (ER) | payer OTHER ==
[~2021-12-18] VITALS: Ht 180.3 cm; Wt 95.5 kg
[2021-12-18 17:12] VITALS: BP 139/80
[~2021-12-18 17:12] MED LIST changes: -AMPICILLIN SOD/SULBACTAM SOD 3 GM in D5W MINI-BAG PLUS 100 ML IV ONE; -LATU40TA PO; +LATU40TA2 PO; -LIDOCAINE 1% MDV 20ML VIAL SQ PRN; -LR 1,000 ML IV ONE; -dexameTHASONE 4 MG/ML 1ML VIAL (J1100 PER 1MG) IV ONE
[2021-12-18 18:49] LABS: BASO # 0.1 10^3/uL (0.0-0.2); BASO % 0.3 % (0.0-1.0); EOS # 0.1 10^3/uL (0.0-0.5); EOS % 0.5 % (0.0-3.0); HEMATOCRIT 40.3 % (42.0-52.0); HEMOGLOBIN 14.2 g/dl (13.5-17.5); LYMPH # 3.1 10^3/uL (1.5-5.0); LYMPH % 18.7 % (24.0-44.0); MEAN CORPUSCULAR HEMOGLOBIN 31.2 pg (27.0-33.0); MEAN CORPUSCULAR HGB CONC 35.2 g/dl (32.0-36.5); MEAN CORPUSCULAR VOLUME 88.6 fl (80.0-96.0); MONO # 0.9 10^3/uL (0.0-0.8); MONO % 5.5 % (2.0-8.0); NEUTROPHILS # 12.3 10^3/uL (1.5-8.5); NEUTROPHILS % 74.6 % (36.0-66.0); PLATELET COUNT, AUTOMATED 258 10^3/uL (150-450); RED BLOOD COUNT 4.55 10^6/uL (4.30-6.10); WHITE BLOOD COUNT 16.5 10^3/uL (4.0-10.0)
[2021-12-18 19:08] LABS: CK-MB VALUE MASS < 1.0 NG/ML (<3.6); CPK CREATINE PHOSPHOKINASE 117 U/L (39-308); MB/CK RELATIVE INDEX 0.85 (< OR =4)
[2021-12-18 19:09] LABS: ERYTHROCYTE SEDIMENTATION RATE 8 mm/hr (0-15)
[2021-12-18 19:24] LABS: BLOOD UREA NITROGEN 9 MG/DL (7-18); CALCIUM LEVEL 9.7 MG/DL (8.5-10.1); CARBON DIOXIDE LEVEL 27 MEQ/L (21-32); CHLORIDE LEVEL 104 MEQ/L (98-107); CREATININE FOR GFR 0.83 MG/DL (0.70-1.30); FREE THYROXINE INDEX 4.4 % (1.4-3.8); GLOMERULAR FILTRATION RATE > 60.0 (>60); GLUCOSE, FASTING 94 MG/DL (70-100); LITHIUM LEVEL < 0.20 MEQ/L (0.60-1.20); POTASSIUM SERUM 3.9 MEQ/L (3.5-5.1); SODIUM LEVEL 136 MEQ/L (136-145); T UPTAKE 39 % (33-40); THYROXINE (T4) 11.2 UG/DL (4.5-12.0)
[2021-12-18 20:37] LABS: CK-MB VALUE MASS < 1.0 NG/ML (<3.6); CPK CREATINE PHOSPHOKINASE 108 U/L (39-308); MB/CK RELATIVE INDEX 0.93 (< OR =4)
== END 2021-12-18 20:52 | disposition home or self-care (01) ==
LOC: M ED 17:12
DX: R07.89 Other chest pain (principal); R78.89 Finding of other specified substances, not normally found in blood; F17.200 Nicotine dependence, unspecified, uncomplicated; Z88.6 Allergy status to analgesic agent; Z79.899 Other long term (current) drug therapy

== ENCOUNTER → 2022-09-24 | Outpatient (REF) | payer OTHER ==
[2022-09-24 13:07] LABS: BASO # 0.1 10^3/uL (0.0-0.2); BASO % 0.6 % (0.0-1.0); EOS # 0.2 10^3/uL (0.0-0.5); EOS % 1.7 % (0.0-3.0); HEMATOCRIT 42.6 % (42.0-52.0); HEMOGLOBIN 14.8 g/dl (13.5-17.5); LYMPH # 2.5 10^3/uL (1.5-5.0); MEAN CORPUSCULAR HEMOGLOBIN 31.8 pg (27.0-33.0); MEAN CORPUSCULAR HGB CONC 34.7 g/dl (32.0-36.5); MEAN CORPUSCULAR VOLUME 91.4 fl (80.0-96.0); MONO # 0.7 10^3/uL (0.0-0.8); NEUTROPHILS # 5.6 10^3/uL (1.5-8.5); NEUTROPHILS % 61.4 % (36.0-66.0); PLATELET COUNT, AUTOMATED 269 10^3/uL (150-450); RED BLOOD COUNT 4.66 10^6/uL (4.30-6.10); WHITE BLOOD COUNT 9.1 10^3/uL (4.0-10.0)
[2022-09-24 13:17] LABS: ALBUMIN 3.7 G/DL (3.2-5.2); ALKALINE PHOSPHATASE 97 U/L (46-116); ALT/SGPT 18 U/L (7.0-40); AST/SGOT 19 U/L (<34); BILIRUBIN,TOTAL 0.3 MG/DL (0.3-1.2); BLOOD UREA NITROGEN 7 MG/DL (9-23); CALCIUM LEVEL 9.4 MG/DL (8.5-10.1); CARBON DIOXIDE LEVEL 25 MMOL/L (20-31); CHLORIDE LEVEL 108 MMOL/L (98-107); CHOLESTEROL LEVEL 219 MG/DL (<200); CHOLESTEROL RISK RATIO 4.78 (<5); CREATININE FOR GFR 0.68 MG/DL (0.70-1.30); GLOMERULAR FILTRATION RATE > 60.0 (>60); GLUCOSE, FASTING 92 MG/DL (60-100); HDL CHOLESTEROL 45.8 MG/DL (>40); LDL CHOLESTEROL 139.8 MG/DL (<100); NON-HDL-C 173 MG/DL; SODIUM LEVEL 136 MMOL/L (136-145); TOTAL PROTEIN 6.9 G/DL (5.7-8.2); TRIGLYCERIDES LEVEL 167 MG/DL (<150)
[2022-09-24 13:18] LABS: THYROID STIMULATING HORMONE 2.791 uIU/ML (0.55-4.78)
[2022-09-24 13:48] LABS: HEMOGLOBIN A1c 4.7 % (4.0-6.0)
== END ==
LOC: M LAB REF 12:39
PROVIDERS: ATTEND Nurse Practitioner Family
DX: Z13.228 Encounter for screening for other metabolic disorders (principal)

== ENCOUNTER 2022-10-03 08:01 | Emergency (ER) | payer OTHER ==
[~2022-10-03] VITALS: Ht 180.3 cm; Wt 98.3 kg
[2022-10-03 08:02] VITALS: BP 142/82
[2022-10-03 09:13] LABS: BASO # 0.1 10^3/uL (0.0-0.2); BASO % 0.4 % (0.0-1.0); EOS # 0.3 10^3/uL (0.0-0.5); HEMATOCRIT 42.4 % (42.0-52.0); HEMOGLOBIN 14.5 g/dl (13.5-17.5); LYMPH # 3.2 10^3/uL (1.5-5.0); MEAN CORPUSCULAR HEMOGLOBIN 31.5 pg (27.0-33.0); MEAN CORPUSCULAR HGB CONC 34.2 g/dl (32.0-36.5); MONO # 0.9 10^3/uL (0.0-0.8); MONO % 7.1 % (2.0-8.0); NEUTROPHILS # 7.9 10^3/uL (1.5-8.5); PLATELET COUNT, AUTOMATED 256 10^3/uL (150-450); RED BLOOD COUNT 4.61 10^6/uL (4.30-6.10); WHITE BLOOD COUNT 12.3 10^3/uL (4.0-10.0)
[2022-10-03 09:27] LABS: INR 0.95; PROTHROMBIN TIME 12.9 SECONDS (12.5-14.5)
[2022-10-03 09:40] LABS: CPK CREATINE PHOSPHOKINASE 129 U/L (46-171)
[2022-10-03 09:41] LABS: ALBUMIN 3.5 G/DL (3.2-5.2); ALKALINE PHOSPHATASE 109 U/L (46-116); ALT/SGPT 18 U/L (7.0-40); AST/SGOT 20 U/L (<34); BILIRUBIN,DIRECT 0.1 MG/DL (<0.4); BILIRUBIN,TOTAL 0.3 MG/DL (0.3-1.2); BLOOD UREA NITROGEN 11 MG/DL (9-23); CALCIUM LEVEL 8.9 MG/DL (8.5-10.1); CARBON DIOXIDE LEVEL 25 MMOL/L (20-31); CHLORIDE LEVEL 106 MMOL/L (98-107); CK-MB VALUE MASS < 1.0 NG/ML (<3.6); CREATININE FOR GFR 0.77 MG/DL (0.70-1.30); GLOMERULAR FILTRATION RATE > 60.0 (>60); GLUCOSE, FASTING 97 MG/DL (60-100); LITHIUM LEVEL 0.12 MEQ/L (0.60-1.20); MB/CK RELATIVE INDEX 0.77 (< OR =4); POTASSIUM SERUM 3.8 MMOL/L (3.5-5.1); SODIUM LEVEL 137 MMOL/L (136-145); TOTAL PROTEIN 6.7 G/DL (5.7-8.2)
== END 2022-10-03 10:21 | disposition left against medical advice (07) ==
LOC: M ED 08:01
DX: Z53.21 Procedure and treatment not carried out due to patient leaving prior to being seen by health care provider (principal)

== ENCOUNTER → 2023-04-16 | Outpatient (CLI) | payer OTHER | LOC: M SLEEP 20:00 | PROVIDERS: ATTEND Physician Assistant | DX: R40.0 Somnolence (principal) ==

== ENCOUNTER → 2023-12-08 | Outpatient (REF) | payer OTHER ==
[2023-12-08 17:10] LABS: BASO % 0.4 % (0.0-1.0); EOS # 0.2 10^3/uL (0.0-0.5); HEMATOCRIT 38.9 % (42.0-52.0); HEMOGLOBIN 13.7 g/dl (13.5-17.5); LYMPH # 3.4 10^3/uL (1.5-5.0); LYMPH % 40.2 % (24.0-44.0); MEAN CORPUSCULAR HEMOGLOBIN 32.2 pg (27.0-33.0); MEAN CORPUSCULAR HGB CONC 35.2 g/dl (32.0-36.5); MEAN CORPUSCULAR VOLUME 91.5 fl (80.0-96.0); MONO # 0.7 10^3/uL (0.0-0.8); MONO % 8.3 % (2.0-8.0); NEUTROPHILS # 4.2 10^3/uL (1.5-8.5); NEUTROPHILS % 48.9 % (36.0-66.0); PLATELET COUNT, AUTOMATED 227 10^3/uL (150-450); RED BLOOD COUNT 4.25 10^6/uL (4.30-6.10); WHITE BLOOD COUNT 8.5 10^3/uL (4.0-10.0)
[2023-12-08 17:28] LABS: HEMOGLOBIN A1c 5.1 % (4.0-6.0)
[2023-12-08 17:46] LABS: ALBUMIN 3.5 G/DL (3.2-5.2); ALKALINE PHOSPHATASE 93 U/L (46-116); ALT/SGPT 38 U/L (7.0-40); AST/SGOT 18 U/L (<34); BILIRUBIN,TOTAL 0.4 MG/DL (0.3-1.2); BLOOD UREA NITROGEN 13 MG/DL (9-23); CALCIUM LEVEL 8.9 MG/DL (8.5-10.1); CARBON DIOXIDE LEVEL 28 MMOL/L (20-31); CHLORIDE LEVEL 110 MMOL/L (98-107); CHOLESTEROL LEVEL 190 MG/DL (<200); CHOLESTEROL RISK RATIO 4.47 (<5); CREATININE FOR GFR 0.92 MG/DL (0.70-1.30); GLOMERULAR FILTRATION RATE > 60.0 (>60); GLUCOSE, FASTING 97 MG/DL (60-100); HDL CHOLESTEROL 42.5 MG/DL (>40); LDL CHOLESTEROL 109.7 MG/DL (<100); MAGNESIUM LEVEL 1.9 MG/DL (1.8-2.4); NON-HDL-C 147.5 MG/DL; SODIUM LEVEL 137 MMOL/L (136-145); TOTAL PROTEIN 6.4 G/DL (5.7-8.2); TRIGLYCERIDES LEVEL 189 MG/DL (<150)
[2023-12-08 17:47] LABS: THYROID STIMULATING HORMONE 2.941 uIU/ML (0.55-4.78); TOTAL 25(OH) VITAMIN D 10.7 NG/ML (20.0-100.0)
== END ==
LOC: M LAB REF 16:23
PROVIDERS: ATTEND Nurse Practitioner Family
DX: E66.3 Overweight (principal); E55.9 Vitamin D deficiency, unspecified